=== PATIENT | male | born 1995 | race Caucasian/White ===

== ENCOUNTER 2022-01-31 20:56 | Emergency (ER) | payer SELFPAY ==
[2022-02-01] MEDS ORDERED: HM DOUBLE ANT28.4 GM TP (02:26)
== END 2022-02-01 02:40 | disposition home or self-care (01) ==
LOC: ER1 20:56
DX: S61.312A Laceration without foreign body of right middle finger with damage to nail, initial encounter (principal); W26.0XXA Contact with knife, initial encounter; Y92.009 Unspecified place in unspecified non-institutional (private) residence as the place of occurrence of the external cause
CPT/HCPCS: 12001; 90471; 90714; 99282